=== PATIENT | female | born 1975 | race Caucasian/White ===

== ENCOUNTER 2017-09-07 15:30 | Emergency (ER) | payer OTHER ==
[~2017-09-07] VITALS: Ht 172.7 cm; Wt 72.6 kg
[2017-09-07] MEDS ORDERED: fentaNYL INJECTION 100 MCG/2 ML AMP IVP STA (15:34)
[2017-09-07] MEDS ORDERED: NS IV 1000 ML 1,000 ML IV ONE (15:34)
[2017-09-07] MEDS ORDERED: fentaNYL INJECTION 100 MCG/2 ML AMP ONE (15:35)
[2017-09-07] MEDS ORDERED: LIDOCAINE 1% INJ 50 ML (XYLOCAINE) VIAL ONE (15:43)
[2017-09-07] MEDS ORDERED: CLINDAMYCIN 600 MG/50 ML IVPB 50 ML IV ONE (15:45)
[2017-09-07] MEDS ORDERED: TETANUS,DIPTH,PERTUSS P/F (BOOSTRIX) 0.5 ML VIAL IM ONE (15:45)
[2017-09-07] MEDS ORDERED: SILVER SULFADIAZINE 50 GM CREAM ONE (16:27)
--- NOTE | 2017-09-07 16:43 | Diagnostic Imaging Report ---
INDICATION: Injury. Pain. COMPARISON: None FINDINGS: 3 views of the left fourth finger are obtained. There is amputation of the distal phalanx of the left fourth finger. There is also dislocation of the PIP joint of the left fourth finger with ventral and proximal dislocation of the middle phalanx with respect to the proximal phalanx. There is several small osseous fragments adjacent to the proximal aspect of the middle phalanx consistent with small fractures. IMPRESSION: There is amputation of the left fourth finger at the level of the DIP joint and there is fracture dislocation at the PIP joint as described. Dictated by: Dictated on workstation # [id number]
--- NOTE | 2017-09-07 16:59 | ED Upper Extremity ---
General Chief Complaint: Upper Extremity Stated Complaint: CUT L HAND R FINGER Nursing Triage Note: Pt. advises she was tying up a mare when the mare pulled back and cut her left ring finger off with the lead rope. Nursing Sepsis Screen: No Definite Risk History of Present Illness Date Seen by Provider: Sep 07, 2017 Time Seen by Provider: 15:45 Initial Comments 42-year-old female reports that she was working with her horse when a rope came between a pipe on the fence and her finger. As the horse pulled back, the rope amputated the 4th finger of her left hand at the DIP joint. They put dressing on the finger and drove directly here with the amputated tip on ice. She also complains of a rope burn under her chin. She ate chips for lunch at approximately 12:00 today, nothing to eat or drink since then She is otherwise healthy on no medications routinely, she was started on Tamiflu on 09/02/17 by her primary care provider for fevers and body aches. She was not tested for influenza. She denies a fever for the last 4 days, no cough or body aches at this time. Onset: just prior to arrival Pain/Injury Location: left 4th finger Method of Injury: incised (by rope) Modifying Factors: Improves With Rest Allergies and Home Medications Allergies Coded Allergies: Penicillins (Verified Allergy, Unknown, 09/07/17) sulfamethoxazole (Verified Allergy, Unknown, 09/07/17) trimethoprim (Verified Allergy, Unknown, 09/07/17) Patient Home Medication List Home Medication List Reviewed: Yes Constitutional: no symptoms reported, see HPI : No (hysterectomy) Musculoskeletal: see HPI, joint pain (PIP and DIP joint left fourth finger) Skin: see HPI, other (amputation at the DIP joint of the fourth finger left hand. 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 Psychosocial Suicide Risk Score: 0 Reviewed Nursing Assessment Reviewed/Agree w Nursing PMH: Yes Physical Exam Vital Signs Vital Signs - First Documented 09/07/17 16:00 Temp 97.1 Pulse 89 Resp 14 B/P (MAP) 137/92 (107) Pulse Ox 98 O2 Delivery Room Air Capillary Refill : Less Than 3 Seconds General Appearance: WD/WN, no apparent distress HEENT: PERRL/EOMI, normal ENT inspection, TMs normal, pharynx normal Neck: non-tender, full range of motion, supple, normal inspection Cardiovascular: normal peripheral pulses, regular rate, rhythm, no murmur Respiratory: chest non-tender, lungs clear, normal breath sounds, no respiratory distress Gastrointestinal: normal bowel sounds, non tender, soft Wrist: Yes normal inspection, Yes non-tender, Yes no evidence of injury (left) Hand: Left, bone tenderness, deformity, laceration (complete amputation at the DIP joint, exposed distal phalanx, mangled skin and soft tissue, slight oozing of blood no active bleeding.), soft tissue tenderness Neurologic/Psychiatric: no motor/sensory deficits, alert, normal mood/affect, oriented x 3 Skin: normal color, warm/dry Progress/Results/Core Measures Results/Orders My Orders Orders - [place] SHARMA Silver Sulfadiazine 50 Gm (Ssd 1% 50 Gm) (09/07/17 16:27) Medications Given in ED Vital Signs/I&O Blood Pressure Mean: 107 Progress Note : Time: 15:45 Progress Note Initial evaluation completed with Dr. Liu. Plan for pain management with fentanyl IV, digital block, x-ray and clindamycin for antibiotic coverage with allergy to penicillin and sulfas. Tetanus vaccine given. Ring to left fourth finger was cut off successfully by Amber Pompa RN. 1600 digital block with 12 mls of 1% lidocaine, skin prepped with Betadine. She tolerated procedure with no complications. Reports no pain at this time. 1615 x-ray shows a dislocation at the PIP joint with volar displacement and shortening of Middle Phalynx, and fracture fragments at PIP joint. Middle Phalynx intact, due to this not enough soft tissue to cover if reduced. Will likely necessitate amputation to the PIP, Dr. Liu and I feel orthopedics are necessary for this management. Patient noted to have small excoriation to the skin under her chin, no active bleeding or drainage. She believes the rope scratched across this area. Silvadene cream applied. [address] Carr by phone for trauma call, recommended orthopedic evaluation.Call to Dr. Livan Tabares, orthopedics on-call for [facility], described patient's injury and x-rays. Recommended transfer to a hand surgeon. Requested he come and evaluate the patient to make that determination, stated he was not a hand specialist and it needed to be transferred to a facility with a hand surgeon. Discussed this with Dr. Liu, agreed with recommendation to try [facility] or [facility] in [place], [place]. [address] Gonzalez at [place], [place], Orthopedic Surgeon, agreed to accept patient but stated this could be completed by any orthopedic surgeon and requested names of all providers involved. Spoke to Dr. Vences in ED at [facility], agreed to accept the patient. She is to stay NPO. 1645 discussed recommendation for transfer to [facility] with the patient and her . They understand that she is to not eat or drink anything. Copies of ER report and x-rays on disc sent with them. Transfer paperwork completed. Sterile bulky dressing applied to left fourth finger and reinforced. She is to keep it iced and elevated for the car ride. Discharge instructions reviewed, all questions answered. Diagnostic Imaging Diagonstic Imaging: Xray Plain Films/CT/US/NM/MRI: hand Comments NAME: STELLA HODGE MED REC#: [id number] PHYSICIAN: NILSE LIU DO CC: NILES LIU DO; GERRY AHN DO Page 1 of 1 RADIOLOGY REPORT [facility] [place] [place] CC: NILES LIU DO; GERRY AHN DO Page 1 of 1 RADIOLOGY REPORT NAME: STELLA HODGE MED REC#: [id number] PT STATUS: REG ER : 1975 PHYSICIAN: NILES LIU DO ADMIT DATE: 09/07/17/ER Signed Date of Exam: 09/07/17 FINGER(S) INDICATION: Injury. Pain. COMPARISON: None FINDINGS: 3 views of the left fourth finger are obtained. There is amputation of the distal phalanx of the left fourth finger. There is also dislocation of the PIP joint of the left fourth finger with ventral and proximal dislocation of the middle phalanx with respect to the proximal phalanx. There is several small osseous fragments adjacent to the proximal aspect of the middle phalanx consistent with small fractures. IMPRESSION: There is amputation of the left fourth finger at the level of the DIP joint and there is fracture dislocation at the PIP joint as described. Dictated by: Dictated on workstation # [id number] Dict: 09/07/17 163 Trans: 09/07/171651 Interpreted by: GERRY AHN DO Electronically signed by: GERRY AHN DO 09/07/171651 Reviewed: Reviewed by Me Departure Impression Impression: Primary Impression: Amputation, finger, traumatic Qualified Codes: S68.119A - Complete traumatic metacarpophalangeal amputation of unspecified finger, initial encounter Additional Impression: Dislocation of PIP joint of finger Qualified Codes: S63.289A - Dislocation of proximal interphalangeal joint of unspecified finger, initial encounter Disposition: XFER SHT-TRM HOSP Condition: Stable Transfer Time Spoke to Accepting Phy: 16:45 Transfer Progress Notes Spoke to Ortho public relations sales marketing, General Orthopedist Dr. Gonzalez. ED accepting Dr. Mora. Transfer Facility: [place], [place] Method of Transfer: Private Vehicle Departure-Patient Inst. Referrals: SARAN BARRETT DNP (PCP/Family) Primary Care Physician Patient Instructions: Amputation of the Finger or Fingertip (DC), Finger Fracture (DC) Add. Discharge Instructions: Keep ice to left fourth finger and left hand elevated. Go directly to [place], [place]: Emergency Dept. Dr. Gonzalez, orthopedist will see you. Do Not Eat or Drink anything. All discharge instructions reviewed with patient and/or family. Voiced understanding. [place] SHARMA Sep 07, 2017 16:59
[2017-09-07 17:32] VITALS: BP 157/99
--- OUTSIDE RECORDS SUMMARY | 2017-09-08 12:36 | XMS REPORT | Continuity of Care Document ---
Author Author [facility] Organization [facility] Address Unknown Phone Unavailable Allergies Active Description Code Type Severity Reaction Onset Reported/Identified Relationship to Patient Clinical Status Yes Penicillins Drug Allergy N/A N/A 12/01/2013 Medications There is no data. Problems Date Dx Coded Attending Type Code Diagnosis Diagnosed By 09/30/2013 Dago Nelson N.P. 782.1 Rash 10/22/2013 Dago Nelson N.P. 782.1 Rash 12/01/2013 MOODY RITCHIE DDS V72.2 DENTAL EXAMINATION Procedures Code Description Performed By Performed On [id number] Queried Patient for Tobacco Use 10/06/2013 57068 Office visit - new pt, level 2 10/06/2013 08563 Therapeutic, prophylactic or diagnostic injection; subcutaneous or intramuscular 10/22/2013 KK312A Queried Patient for Tobacco Use 10/22/2013 30316 Office/outpatient visit; established patient, level 4 10/22/2013 05274 Office/outpatient visit; established patient, level 3 10/22/2013 D0140 LIMIT ORAL EVAL PROBLM FOCUS 12/01/2013 D0220 INTRAORAL PERIAPICAL FIRST F 12/01/2013 Results There is no data. Encounters ACCT No. Visit Date/Time Discharge Status Pt. Type Provider Facility Loc./Unit Complaint [id number] 10/22/2013 08:46:22 10/22/2013 09:17:49 DIS Outpatient Dago Nelson N.P. [id number] 09/30/2013 09:01:11 09/30/2013 09:40:44 DIS Outpatient Dago Nelson N.P. [id number] 12/01/2013 16:21:00 12/01/2013 23:59:59 CLS Outpatient MOODY RITCHIE DDS
== END 2017-09-07 17:31 | disposition short-term general hospital (02) ==
LOC: EDUNIT# 15:30 → ER 15:32
DX: S68.115A Complete traumatic metacarpophalangeal amputation of left ring finger, initial encounter (principal); S63.285A Dislocation of proximal interphalangeal joint of left ring finger, initial encounter; Z98.51 Tubal ligation status; Z88.0 Allergy status to penicillin; Z88.1 Allergy status to other antibiotic agents; Z88.2 Allergy status to sulfonamides; Z88.8 Allergy status to other drugs, medicaments and biological substances; W23.0XXA Caught, crushed, jammed, or pinched between moving objects, initial encounter
CPT/HCPCS: 64450; 73140; 90715